=== PATIENT | female | born 1960 | race Two or more races ===

== ENCOUNTER 2023-07-24 15:25 | Emergency (ER) | payer OTHER ==
[~2023-07-24] VITALS: Ht 154.9 cm; Wt 95.5 kg
[~2023-07-24 15:25] MED LIST: CHOL400T32 PO; DULO-31 PO; GLUC100017 PO; IBUP-24 PO; LORA-641 PO; LOSA1TAB41 PO; OMEG1CAP46 PO; PANT-47 PO
[2023-07-24 15:33] VITALS: BP 165/88; PULSE 101; RESP 18; TEMP 98.8; O2SAT 96
[2023-07-24] MEDS ORDERED: METH-798 PO (17:51)
[2023-07-24] MEDS ORDERED: IBUP-1985 PO (17:51)
== END 2023-07-24 18:11 | disposition home or self-care (01) ==
LOC: ER 15:26
DX: M54.2 Cervicalgia (principal); M54.6 Pain in thoracic spine; Z79.899 Other long term (current) drug therapy; Z79.2 Long term (current) use of antibiotics; V89.2XXA Person injured in unspecified motor-vehicle accident, traffic, initial encounter; Y93.89 Activity, other specified; Y92.89 Other specified places as the place of occurrence of the external cause; Y99.8 Other external cause status
CPT/HCPCS: 71046; 72040; 99284